=== PATIENT | male | born 1980 | race Caucasian/White ===

== ENCOUNTER 2023-10-24 02:13 | Emergency (ER) | payer OTHER ==
[~2023-10-24] VITALS: Ht 175.3 cm; Wt 99.8 kg
[2023-10-24 02:34] VITALS: BP 112/70; TEMP 97.9; O2SAT 96
[2023-10-24] MEDS: CLINDAMYCIN HCL 150 MG CAPSULE PO ONE (03:30)
[2023-10-24] MEDS ORDERED: CLIN150C16 PO (03:30)
[2023-10-24] MEDS ORDERED: CLINDAMYCIN HCL 150 MG CAPSULE ONE (03:34)
== END 2023-10-24 03:54 ==
LOC: ER 02:17
DX: L03.115 Cellulitis of right lower limb (principal)